=== PATIENT | female | born 1960 | race Caucasian/White ===

== ENCOUNTER 2017-12-25 08:55 | Day surgery (SDC) | payer OTHER ==
[~2017-12-25] VITALS: Ht 154.9 cm; Wt 77.8 kg
[~2017-12-25 08:55] MED LIST: ADVAIR 250-501 EACH INH; ADVAIR HFA 115-12 GM INH; ALBUTEROL2.5 MG/3 M INH; BUPROPION HCL150 M2 PO; CEPHALEXIN500 MG PO; COMBIVENT RESPIM4 GM INH; CYCLOBENZAPRINE10 MG PO; NAPROXEN500 MG PO; NORCO 5-325 TA1 EACH PO; VENTOLIN HFA18 GM INH
--- NOTE | 2017-12-25 11:29 | NUR ---
1105 ASSISTED TO BR. WARM BLANKETS ON. IV PATENT. UPDATED ON WAIT.
--- NOTE | 2017-12-25 12:17 | NUR ---
12/25/17 1217 Lisa Bryant 1208 PT ARRIVED TO PACU WITH ORAL AIRWAY IN PLACE. RESP EVEN AND UNLABORED. 1211 O2 DECREASED TO 6L.
--- NOTE | 2017-12-26 07:54 | OR ---
[facility] [address], [place] [address] Signed DATE OF OPERATION: 12/25/2017 SURGEON: Margo Sam MD PREOPERATIVE DIAGNOSES: 1. Multiple colorectal polyps. 2. Diverticulosis. 3. Internal hemorrhoids. POSTOPERATIVE DIAGNOSES: 1. Multiple 4 mm mid rectal polyps. 2. Several 4 mm distal sigmoid colon polyps. 3. A 6 mm proximal right colon polyp x1. 4. Minimal moderate sigmoid diverticulosis. 5. Cfsvlwm-sy-tuqxlahq internal and external hemorrhoids. PROCEDURE: Colonoscopy with hot biopsy. ESTIMATED BLOOD LOSS: None. INDICATIONS: Blanka is a 57-year-old female, who came to us in January 2016 for her screening colonoscopy. She had a large number of polyps removed in the sigmoid colon and the rectum. She is known to have some diverticulosis as well as some internal hemorrhoids. It took a large amount of Versed and fentanyl for that procedure and we had trouble with airway throughout the whole time. She has a history of COPD and asthma and likes to smoke and so we had trouble with her wheezing and it took the full attention of our nurse to monitor her airway the entire case. Consequently, we have asked her to come back on a short interval to make sure we have all the polyps removed and in addition, we have asked the anesthesia provider to help us with infusion of propofol as well as airway management. She had expressed understanding and wished to proceed. She has told me there is no family history of colon cancer or polyps. She is well aware of the risks including, but not limited to gas bloating, crampy abdominal pain, bleeding, perforation, requiring surgery, and missed diagnosis. PROCEDURE NOTE: Blanka was taken into our endoscopy suite and placed in the left lateral decubitus position. She was given IV sedation with propofol per our nurse plywood layup line core layer. A digital Electronically Signed By: MARGO SAM MD 12/26/17 0754 PATIENT NAME: BLANKA ACUNA OPERATIVE REPORT DATE OF : 64 REPORT #: [id number] PHYSICIAN: MARGO SAM MD PCP: MADELEINE RIVAS MD REPORT IS CONFIDENTIAL AND NOT TO BE RELEASED WITHOUT AUTHORIZATION [facility] [address], [place] [address] Signed rectal exam was performed and she does have pfsbwxu-bf-icnuxzzu circumferential external hemorrhoids. The adult colonoscope was introduced and advanced under direct visualization of camera. It took some abdominal compression and some additional propofol to get the scope all the way into the cecum. Her prep was quite good. The scope was then slowly withdrawn. The above-mentioned polyps were easily removed with the help of hot biopsy forceps. We also saw diverticula once again. They were dfotvqj-ig-grvyestt in size siangdy-ny-ctqwzzyl in number, and scattered about. Once in the rectum, the scope had been retroflexed and she does have moderate internal hemorrhoid columns. she sees blood once in a while from those hemorrhoids. After this, the gas was suctioned out and the colonoscope removed. Blanka tolerated the procedure quite well. RECOMMENDATIONS: I will see Blanka back in my office in 7 to 14 days to review her results. Margo Sam MD ALB/MODL /[id number] cc: MD Margo Soler MD Copies: MADELEINE RIVAS MD, ANDREW L MD ~ Electronically Signed By: MARGO SAM MD 12/26/17 0754 PATIENT NAME: BLANKA ACUNA OPERATIVE REPORT DATE OF : 64 REPORT #: [id number] PHYSICIAN: MARGO SAM MD PCP: MADELEINE RIVAS MD REPORT IS CONFIDENTIAL AND NOT TO BE RELEASED WITHOUT AUTHORIZATION
== END 2017-12-25 12:50 | disposition home or self-care (01) ==
LOC: DS 08:55 → OPS 08:55
PROVIDERS: Colon & Rectal Surgery
PROC: 0DBE8ZX Excision of Large Intestine, Via Natural or Artificial Opening Endoscopic, Diagnostic (ICD-10-PCS; 2017-12-25)
PROC: 0DBN8ZX Excision of Sigmoid Colon, Via Natural or Artificial Opening Endoscopic, Diagnostic (ICD-10-PCS; 2017-12-25)
PROC: 0DBP8ZX Excision of Rectum, Via Natural or Artificial Opening Endoscopic, Diagnostic (ICD-10-PCS; 2017-12-25)
PROC: 0DBH8ZX Excision of Cecum, Via Natural or Artificial Opening Endoscopic, Diagnostic (ICD-10-PCS; principal; 2017-12-25 11:00)
DX: K63.5 Polyp of colon (principal); K62.1 Rectal polyp; K64.4 Residual hemorrhoidal skin tags; K57.30 Diverticulosis of large intestine without perforation or abscess without bleeding; K64.8 Other hemorrhoids; J44.9 Chronic obstructive pulmonary disease, unspecified; E78.00 Pure hypercholesterolemia, unspecified; E66.9 Obesity, unspecified; F17.210 Nicotine dependence, cigarettes, uncomplicated; Z79.899 Other long term (current) drug therapy; Z88.6 Allergy status to analgesic agent; Z68.32 Body mass index [BMI] 32.0-32.9, adult
CPT/HCPCS: 88305; J2704; J7120

== ENCOUNTER 2023-11-17 10:43 | Emergency (ER) | payer MEDICARE, MEDICAID ==
[~2023-11-17] VITALS: Ht 154.9 cm; Wt 84.8 kg
[2023-11-17] MEDS ORDERED: ESCITALOPRAM OX10 MG PO (10:54)
[2023-11-17] MEDS ORDERED: TRELEGY ELLIPT1 EAC1 IH (10:54)
[2023-11-17] MEDS ORDERED: ROSUVASTATIN CA10 MG PO (10:54)
[2023-11-17] MEDS ORDERED: OXYCODONE HCL5 MG PO (11:45)
[2023-11-17 12:20] VITALS: BP 124/70
== END 2023-11-17 12:21 | disposition home or self-care (01) ==
LOC: ED 10:43
DX: S99.912A Unspecified injury of left ankle, initial encounter (principal); S89.91XA Unspecified injury of right lower leg, initial encounter; J44.9 Chronic obstructive pulmonary disease, unspecified; F17.200 Nicotine dependence, unspecified, uncomplicated; W18.42XA Slipping, tripping and stumbling without falling due to stepping into hole or opening, initial encounter; Z88.8 Allergy status to other drugs, medicaments and biological substances; Z88.5 Allergy status to narcotic agent
CPT/HCPCS: 73560; 73610; 99283